=== PATIENT | female | born 1985 | race Caucasian/White ===

== ENCOUNTER 2016-11-22 08:52 | Emergency (ER) | payer OTHER ==
[~2016-11-22 08:52] MED LIST: COLACE100 M1 PO; IBUPROFEN800 M1 PO; NO HOME MEDICATION XX; NORCO 5-325 TA1 EACH PO; PRENATAL VITAM1 EAC5 PO
[2016-11-22] MEDS ORDERED: BACTRIM DS TAB1 EAC2 PO (08:56)
[2016-11-22] MEDS ORDERED: BENADRYL25 M3 PO (08:57)
[2016-11-22] MEDS ORDERED: VIBRAMYCIN100 M1 PO (09:11)
[2016-11-22] MEDS ORDERED: PREDNISONE20 M1 PO (09:11)
== END 2016-11-22 10:15 ==
LOC: EDMED 08:52
DX: T37.0X5A Adverse effect of sulfonamides, initial encounter (principal); N61.0 Mastitis without abscess; Z90.49 Acquired absence of other specified parts of digestive tract; Z98.890 Other specified postprocedural states
CPT/HCPCS: J1200; J2405; J2930